=== PATIENT | female | born 1980 | race Caucasian/White ===

== ENCOUNTER 2023-09-09 14:25 | Outpatient (RCR) | payer BC, SELFPAY ==
[2023-08-26] MEDS: VENOFER 110 MG IV (14:06)
[2023-08-26 14:11] VITALS: BP 129/78
[2023-08-26 15:10] VITALS: BP 118/75
[2023-09-01 14:53] VITALS: BP 114/65
[2023-09-01] MEDS: VENOFER 110 MG IV (14:53)
[2023-09-01 15:58] VITALS: BP 107/69
[2023-09-04 13:00] VITALS: BP 122/82
[2023-09-04] MEDS: VENOFER 110 MG IV (13:20)
[2023-09-04 14:27] VITALS: BP 116/75
[2023-09-09] MEDS: VENOFER 110 MG IV (14:57)
[2023-09-09 15:03] VITALS: BP 137/83
== END 2023-09-09 23:59 | disposition home or self-care (01) ==
LOC: OID 14:25
PROVIDERS: ATTENDING PHYSICIAN Student in an Organized Health Care Education/Training Program
DX: D50.0 Iron deficiency anemia secondary to blood loss (chronic) (principal); N92.0 Excessive and frequent menstruation with regular cycle
CPT/HCPCS: 96365; J1756

== ENCOUNTER 2023-09-16 10:46 | Outpatient (RCR) | payer BC, SELFPAY ==
[2023-09-16 10:59] VITALS: BP 129/92
[2023-09-16] MEDS: VENOFER 110 MG IV (11:21)
[2023-09-16 12:39] VITALS: BP 112/75
== END 2023-09-17 10:34 | disposition home or self-care (01) ==
LOC: OID 10:46
PROVIDERS: ATTENDING PHYSICIAN Student in an Organized Health Care Education/Training Program
DX: D50.0 Iron deficiency anemia secondary to blood loss (chronic) (principal); N92.0 Excessive and frequent menstruation with regular cycle
CPT/HCPCS: 96365; J1756

== ENCOUNTER → 2023-10-20 11:17 | Outpatient (REF) | payer BC, SELFPAY | LOC: WDC 11:17 | PROVIDERS: ATTENDING PHYSICIAN Student in an Organized Health Care Education/Training Program | DX: Z12.31 Encounter for screening mammogram for malignant neoplasm of breast (principal) | CPT/HCPCS: 77063; 77067 ==

== ENCOUNTER → 2023-12-21 14:41 | Outpatient (REF) | payer BC, SELFPAY ==
[2023-12-21 16:39] LABS: % Basophils 1.1 % (0-2); % Eosinophils 1.7 % (0-6); % Immature Granulocytes 0.5 % (0-0.5); % Lymphocytes 27.7 % (20.5-51.1); % Monocytes 5.5 % (1.7-9.3); % Neutrophils 63.5 % (42.2-75.2); Absolute Basophils 0.1 10^3/uL (0-0.2); Absolute Eosinophils 0.1 10^3/uL (0-0.7); Absolute Lymphocytes 1.8 10^3/uL (1.2-3.4); Absolute Monocytes 0.4 10^3/uL (0.1-0.6); Absolute Neutrophils 4.2 10^3/uL (1.4-6.5); Hematocrit 32.7 % (37.0-47.0); Hemoglobin 11.4 g/dL (12.0-16.0); Mean Corp Hgb Conc. 34.9 g/dL (33.0-37.0); Mean Corpuscular Hgb 31.8 pg (27.0-31.0); Mean Corpuscular Volume 91.3 fL (81.0-99.0); Mean Platelet Volume 9.4 fL (7.4-10.4); Nucleated Red Blood Cells % 0 %; Platelet Count 278 10^3/uL (130-400); Red Blood Cell Count 3.58 10^6/uL (4.20-5.40); Red Cell Dist. Width 12.2 % (11.5-14.5); White Blood Cell Count 6.6 10^3/uL (4.8-10.8)
[2023-12-21 17:02] LABS: Iron 40 ug/dl (37-170)
[2023-12-21 17:12] LABS: Percent Saturation 13 % (20-50); Total Iron Binding Capacity 305 ug/dl (265-497)
[2023-12-21 17:37] LABS: Ferritin 12.5 ng/ml (6.24-137)
== END ==
LOC: REG 14:41
PROVIDERS: ATTENDING PHYSICIAN Student in an Organized Health Care Education/Training Program
DX: D50.0 Iron deficiency anemia secondary to blood loss (chronic) (principal)
CPT/HCPCS: 36415; 82728; 83540; 83550; 85025

== ENCOUNTER → 2024-09-22 07:39 | Outpatient (REF) | payer BC, SELFPAY ==
[2024-09-22 08:24] LABS: % Basophils 1.4 % (0-2); % Eosinophils 1.4 % (0-6); % Immature Granulocytes 0.2 % (0-0.5); % Monocytes 7.1 % (1.7-9.3); % Neutrophils 66.9 % (42.2-75.2); Absolute Basophils 0.1 10^3/uL (0-0.2); Absolute Eosinophils 0.1 10^3/uL (0-0.7); Absolute Lymphocytes 1.1 10^3/uL (1.2-3.4); Absolute Monocytes 0.4 10^3/uL (0.1-0.6); Absolute Neutrophils 3.3 10^3/uL (1.4-6.5); Hematocrit 31.6 % (37.0-47.0); Hemoglobin 10.3 g/dL (12.0-16.0); Mean Corp Hgb Conc. 32.6 g/dL (33.0-37.0); Mean Corpuscular Hgb 27.9 pg (27.0-31.0); Mean Corpuscular Volume 85.6 fL (81.0-99.0); Nucleated Red Blood Cells % 0 %; Platelet Count 236 10^3/uL (130-400); Red Blood Cell Count 3.69 10^6/uL (4.20-5.40); Red Cell Dist. Width 14.5 % (11.5-14.5); White Blood Cell Count 4.9 10^3/uL (4.8-10.8)
[2024-09-22 09:14] LABS: ALT (SGPT) 17 U/L (0-35); AST (SGOT) 20 U/L (14-36); Albumin 4.3 g/dl (3.5-5.0); Alkaline Phosphatase 52 U/L (38-126); Blood Urea Nitrogen 16 mg/dl (7-17); Calcium 8.9 mg/dl (8.4-10.2); Carbon Dioxide 26 mmol/L (22-30); Chloride 105 mmol/L (98-107); Glucose 100 mg/dl (70-99); HDL Cholesterol 100 mg/dl; Iron 39 ug/dl (37-170); LDL Cholesterol, Calculated 57 mg/dl; Potassium 4.7 mmol/L (3.5-5.1); Sodium 137 mmol/L (135-145); Total Bilirubin 0.9 mg/dl (0.2-1.3); Total Cholesterol 166 mg/dl (50-199); Total Protein 6.6 g/dl (6.3-8.2); Triglyceride 49 mg/dl (10-149); Very Low Density Lipoprotein 9 mg/dl (0-30); eGFR > 60.00
[2024-09-22 09:23] LABS: Percent Saturation 10 % (20-50); Total Iron Binding Capacity 372 ug/dl (265-497)
[2024-09-22 11:24] LABS: Ferritin 5.7 ng/ml (6.24-137)
== END ==
LOC: REG 07:39
PROVIDERS: ATTENDING PHYSICIAN Internal Medicine; FAMILY PHYSICIAN Student in an Organized Health Care Education/Training Program
DX: Z00.00 Encounter for general adult medical examination without abnormal findings (principal); D50.0 Iron deficiency anemia secondary to blood loss (chronic); Z13.220 Encounter for screening for lipoid disorders; N92.0 Excessive and frequent menstruation with regular cycle
CPT/HCPCS: 36415; 80053; 80061; 82728; 83540; 83550; 85025

== ENCOUNTER 2024-10-05 13:48 | Outpatient (RCR) | payer BC, SELFPAY ==
[2024-09-27 14:05] VITALS: BP 133/79
[2024-09-27] MEDS: NSS 250 IV (14:15)
[2024-09-27] MEDS: VENOFER 110 MG IV (14:16)
[2024-09-27 15:40] VITALS: BP 117/72
[2024-09-29 13:25] VITALS: BP 131/87
[2024-09-29] MEDS: NSS 250 IV (13:34)
[2024-09-29] MEDS: VENOFER 110 MG IV (13:35)
[2024-09-29 14:50] VITALS: BP 123/65
[2024-10-03 13:20] VITALS: BP 141/85
[2024-10-03] MEDS: NSS 250 IV (13:28)
[2024-10-03] MEDS: VENOFER 110 MG IV (13:28)
[2024-10-03 15:05] VITALS: BP 115/76
[2024-10-05] MEDS: VENOFER 110 MG IV (14:26)
[2024-10-05] MEDS: NSS 250 IV (14:27)
[2024-10-05 15:48] VITALS: BP 120/71
== END 2024-10-06 11:51 | disposition home or self-care (01) ==
LOC: OID 13:48
PROVIDERS: ATTENDING PHYSICIAN Internal Medicine; FAMILY PHYSICIAN Student in an Organized Health Care Education/Training Program
DX: D50.0 Iron deficiency anemia secondary to blood loss (chronic) (principal); N92.0 Excessive and frequent menstruation with regular cycle
CPT/HCPCS: 96361; 96365; J1756

== ENCOUNTER → 2024-10-07 09:43 | Outpatient (REF) | payer BC, SELFPAY | LOC: RAD 09:43 | PROVIDERS: ATTENDING PHYSICIAN Internal Medicine; FAMILY PHYSICIAN Student in an Organized Health Care Education/Training Program | DX: R60.0 Localized edema (principal) | CPT/HCPCS: 93971 ==

== ENCOUNTER 2024-10-24 12:47 | Outpatient (RCR) | payer BC, SELFPAY ==
[2024-10-24] MEDS: VENOFER 110 MG IV (13:11)
[2024-10-24] MEDS: NSS 250 IV (13:11)
[2024-10-24 13:14] VITALS: BP 121/73
[2024-10-24 14:29] VITALS: BP 112/72
== END 2024-10-25 08:14 | disposition home or self-care (01) ==
LOC: OID 12:47
PROVIDERS: ATTENDING PHYSICIAN Internal Medicine; FAMILY PHYSICIAN Student in an Organized Health Care Education/Training Program
DX: D50.0 Iron deficiency anemia secondary to blood loss (chronic) (principal); N92.0 Excessive and frequent menstruation with regular cycle
CPT/HCPCS: 96365; J1756

== ENCOUNTER → 2025-02-01 15:42 | Outpatient (REF) | payer BC, SELFPAY | LOC: WDC 15:42 | PROVIDERS: ATTENDING PHYSICIAN Internal Medicine; FAMILY PHYSICIAN Student in an Organized Health Care Education/Training Program | DX: Z12.31 Encounter for screening mammogram for malignant neoplasm of breast (principal) | CPT/HCPCS: 77063; 77067 ==

== ENCOUNTER → 2025-02-03 10:28 | Outpatient (REF) | payer BC, SELFPAY | LOC: WDC 10:28 | PROVIDERS: ATTENDING PHYSICIAN Internal Medicine | DX: R92.8 Other abnormal and inconclusive findings on diagnostic imaging of breast (principal) | CPT/HCPCS: 76642 ==

== ENCOUNTER → 2025-02-08 07:55 | Outpatient (REF) | payer BC, SELFPAY ==
--- NOTE | 2025-02-08 12:37 | OID.BR.INTR ---
[facility] Navigator - Initial
- -
Date of Contact: 02/08/25
Met with patient. Will follow up as needed per protocol.
== END ==
LOC: WDC 07:55
PROVIDERS: ATTENDING PHYSICIAN Surgery; FAMILY PHYSICIAN Internal Medicine
DX: N63.12 Unspecified lump in the right breast, upper inner quadrant (principal)
CPT/HCPCS: 88305; 19083; 88341; 88342; 88360; A4648

== ENCOUNTER → 2025-02-15 09:39 | Outpatient (REF) | payer BC, SELFPAY | LOC: HWRAD 09:39 | PROVIDERS: ATTENDING PHYSICIAN Student in an Organized Health Care Education/Training Program | DX: N92.4 Excessive bleeding in the premenopausal period (principal); D50.0 Iron deficiency anemia secondary to blood loss (chronic) | CPT/HCPCS: 76830; 76856 ==

== ENCOUNTER 2025-02-23 06:12 | Day surgery (SDC) | payer BC, SELFPAY ==
[2025-02-17 09:13] LABS: Hematocrit 33.8 % (37.0-47.0); Hemoglobin 11.4 g/dL (12.0-16.0); Mean Corp Hgb Conc. 33.7 g/dL (33.0-37.0); Mean Corpuscular Volume 88.9 fL (81.0-99.0); Nucleated Red Blood Cells % 0 %; Platelet Count 258 10^3/uL (130-400); Red Cell Dist. Width 12.3 % (11.5-14.5)
[2025-02-17 09:22] LABS: ALT (SGPT) 16 U/L (0-35); AST (SGOT) 25 U/L (14-36); Albumin 4.9 g/dl (3.5-5.0); Alkaline Phosphatase 38 U/L (38-126); Blood Urea Nitrogen 17 mg/dl (7-17); Calcium 8.9 mg/dl (8.4-10.2); Carbon Dioxide 20 mmol/L (22-30); Chloride 109 mmol/L (98-107); Glucose 97 mg/dl (70-99); Potassium 4.4 mmol/L (3.5-5.1); Sodium 137 mmol/L (135-145); Total Protein 7.3 g/dl (6.3-8.2); eGFR > 60.00
[2025-02-17 09:28] LABS: Prealbumin (Transthyretin) 22.6 mg/dl (17.6-36.0)
[2025-02-17 09:41] LABS: Vitamin D, 25-OH*** 41.3 ng/mL (30-80)
[2025-02-23 06:45] VITALS: BMI 29.2
[2025-02-23 06:50] VITALS: BP 126/81
[2025-02-23 07:00] VITALS: BMI 29.2
[2025-02-23] MEDS: TYLENOL 1000 MG PO (07:10)
[2025-02-23] MEDS: NORMOSOL-R/PLASMALYTE-A 1000 IV (07:40)
[2025-02-23 08:57] VITALS: BP 102/73
[2025-02-23 09:12] VITALS: BP 97/56
[2025-02-23 10:02] VITALS: BP 111/69
== END 2025-02-23 10:14 | disposition home or self-care (01) ==
LOC: SDS 06:12
PROVIDERS: Surgery; ATTENDING PHYSICIAN Obstetrics & Gynecology
DX: N92.0 Excessive and frequent menstruation with regular cycle (principal); N85.4 Malposition of uterus; D50.9 Iron deficiency anemia, unspecified
CPT/HCPCS: 58558; 36415; 80053; 82306; 84134; 85025; 86850; 86900; 86901; 88305

== ENCOUNTER → 2025-02-27 09:05 | Outpatient (REF) | payer BC, SELFPAY | LOC: WDC 09:05 | PROVIDERS: ATTENDING PHYSICIAN Surgery | DX: N63.0 Unspecified lump in unspecified breast (principal) | CPT/HCPCS: 19285; A4648 ==

== ENCOUNTER 2025-02-28 06:17 | Day surgery (SDC) | payer BC, SELFPAY ==
[2025-02-17 14:06] VITALS: BMI 27.1
[2025-02-28 08:30] VITALS: BP 136/79
[2025-02-28] MEDS: NORMOSOL-R/PLASMALYTE-A 1000 IV (08:35)
[2025-02-28 08:37] VITALS: BMI 27.1
[2025-02-28] MEDS: TYLENOL 1000 MG PO (08:47)
[2025-02-28 10:30] VITALS: BP 102/64
--- NOTE | 2025-02-28 10:32 | W.IMMPOSTOP ---
Surgical Immed Post Op Note
-
Primary Surgeon: Jessi
Assisting Surgeon: None
Pre-op Diagnosis: Right breast mass
Post-op Diagnosis: Same
Procedure Performed: Excisional biopsy right breast mass
Anesthesia Type: TIVA
Specimen / Cultures: right breast mass
Estimated Blood Loss: 2cc
Complications: None
Operative Findings: Mass, clip and reflector in speciment
--- NOTE | 2025-02-28 10:34 | OR.RPT ---
Operative Report
Operative Report
Date of procedure: 02/28/2025
Surgeon: Jessi
Preoperative diagnosis: Right breast mass
Postoperative diagnosis: Right breast mass
Procedure: Excisional biopsy right breast mass after localization
Patient is a 44-year-old female who on screening ultrasound was noted to have a new indeterminant mass for which I recommended biopsy. 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 the patient presents
for excision.
On the day prior to surgery, [facility] a Lizzy reflector was placed in the tumor. On the day of surgery, the patient presented to the same-day surgical services unit. She was prepped. DVT and antibiotic
prophylaxis were provided and she was transferred to the operating room
In the supine position intravenous sedation was delivered and the right breast was prepped and draped in the usual sterile fashion. An appropriate timeout was performed by all team members. Tissues were anesthetized with 1% lidocaine plain. A
superior circumareolar incision was made sharply with the blade and the oncoplastic plane was entered and elevated using the cautery. Lizzy reflector signal was strong and a wide resection of the mass was performed using the cautery after a 2-0 silk
traction stitch was passed through it. Time out of body was noted and the specimen was oriented for the pathologist. There was a strong reflector signal within it and specimen radiography confirmed the presence of mass, clip and reflector within
it. Hemostasis was carefully maintained. A small portion of Surgicel was placed in the resection cavity. Tissues were instilled with 0.5% Marcaine plain.
The wound was closed using simple interrupted 3-0 plain on deep intermediate and subcutaneous tissue and skin was closed with a running subcuticular 4 Monocryl. Surgical glue and sterile compressive dressing was applied. All sponge needle and
instrument counts were correct
()
[2025-02-28 10:45] VITALS: BP 104/72
[2025-02-28 11:00] VITALS: BP 113/75
[2025-02-28 11:30] VITALS: BP 117/73
== END 2025-02-28 11:54 | disposition home or self-care (01) ==
LOC: SDS 06:17
PROVIDERS: ATTENDING PHYSICIAN Surgery
DX: D24.1 Benign neoplasm of right breast (principal); N63.10 Unspecified lump in the right breast, unspecified quadrant; N60.01 Solitary cyst of right breast; N62 Hypertrophy of breast
CPT/HCPCS: 19301; 76098; 88307

== ENCOUNTER 2025-06-12 06:20 | Day surgery (SDC) | payer BC, SELFPAY | END 2025-06-12 15:56 | disposition home or self-care (01) | LOC: GI 06:20 | PROVIDERS: ATTENDING PHYSICIAN Internal Medicine Gastroenterology | DX: Z12.11 Encounter for screening for malignant neoplasm of colon (principal); D50.9 Iron deficiency anemia, unspecified; K64.8 Other hemorrhoids; K57.30 Diverticulosis of large intestine without perforation or abscess without bleeding; K44.9 Diaphragmatic hernia without obstruction or gangrene; K31.7 Polyp of stomach and duodenum; K31.89 Other diseases of stomach and duodenum; K29.50 Unspecified chronic gastritis without bleeding; Z86.0100 Personal history of colon polyps, unspecified | CPT/HCPCS: 43239; G0105; 88305; 88342 ==

== ENCOUNTER → 2025-06-16 14:50 | Outpatient (REF) | payer BC, SELFPAY | LOC: WDC 14:50 | PROVIDERS: ATTENDING PHYSICIAN Surgery; FAMILY PHYSICIAN Student in an Organized Health Care Education/Training Program; REFERRING PHYSICIAN Internal Medicine Gastroenterology | DX: N63.0 Unspecified lump in unspecified breast (principal); D50.0 Iron deficiency anemia secondary to blood loss (chronic) | CPT/HCPCS: 36415; 76642; 82784; 83516; 86231 ==